=== PATIENT | female | born 1980 | race Caucasian/White ===

== ENCOUNTER 2019-03-01 07:33 | Emergency (ER) | payer MEDICAID ==
[~2019-03-01] VITALS: Ht 157.5 cm; Wt 77.0 kg
[~2019-03-01 07:33] MED LIST: NONE PER PT
[2019-03-01 07:38] VITALS: BP 136/86
--- NOTE | 2019-03-01 07:46 | NUR ---
FIRST CONTACT WITH PT. LANA. Per pt, "Yesterday I was doing squats and jumping to the floor while exercising. My back started hurting yesterday right after working out. My back hurts right in the middle (lower middle back) and it goes all the way to the front. It feels like it has been compressed. It's a 10. Dr. Britton at [facility] is my doctor." Pt denies cp, sob, n/v/d, trauma, numbness, loss of bowel or bladder.
[2019-03-01] MEDS ORDERED: KETOROLAC 30 MG/1 ML ONE (07:53)
[2019-03-01] MEDS ORDERED: DIAZEPAM 5 MG TABLET ONE (07:54)
[2019-03-01] MEDS ORDERED: KETOROLAC 30 MG/1 ML IM ONE (08:00)
[2019-03-01] MEDS ORDERED: DIAZEPAM 5 MG TABLET PO ONE (08:00)
--- NOTE | 2019-03-01 08:01 | NUR ---
Provided pt medication per EMAR. Pt appreciative.
== END 2019-03-01 08:56 | disposition home or self-care (01) ==
LOC: ED 08:04
DX: S39.012A Strain of muscle, fascia and tendon of lower back, initial encounter (principal); Z87.891 Personal history of nicotine dependence; X58.XXXA Exposure to other specified factors, initial encounter; Y93.89 Activity, other specified; Y92.89 Other specified places as the place of occurrence of the external cause; Y99.8 Other external cause status
CPT/HCPCS: 71045; 96372; 99283; J1885

== ENCOUNTER 2019-10-06 13:58 | Outpatient (CLI) | payer MEDICAID ==
[~2019-10-06 13:58] MED LIST changes: +HYDR-826 PO; +NAPR-685 PO
== END 2019-10-06 23:59 | disposition home or self-care (01) ==
LOC: CFH 13:58
PROVIDERS: ATTEND Internal Medicine Cardiovascular Disease
DX: R07.89 Other chest pain (principal); Z87.891 Personal history of nicotine dependence; Z82.5 Family history of asthma and other chronic lower respiratory diseases; Z82.49 Family history of ischemic heart disease and other diseases of the circulatory system; Z83.3 Family history of diabetes mellitus
CPT/HCPCS: 93306

== ENCOUNTER 2019-12-06 10:57 | Emergency (ER) | payer MEDICAID ==
[~2019-12-06] VITALS: Ht 157.5 cm; Wt 76.7 kg
[2019-12-06] MEDS ORDERED: DIAZEPAM 5 MG TABLET ONE (11:52)
[2019-12-06] MEDS ORDERED: KETOROLAC 30 MG/1 ML ONE (11:52)
[2019-12-06] MEDS ORDERED: DIAZEPAM 5 MG TABLET PO ONE (12:00)
[2019-12-06] MEDS ORDERED: KETOROLAC 30 MG/1 ML IM ONE (12:00)
--- NOTE | 2019-12-06 12:04 | NUR ---
PT MEDICATED PER EMAR, INSTRUCTED TO PROVIDE CLEAN CATCH UA. PT AMB TO BATHROOM AT THIS TIME WITH STEADY GAIT.
[2019-12-06 12:19] LABS: MICROSCOPIC NOT IND
[2019-12-06] MEDS ORDERED: OXYcodone/APAP 5/325MG TABLET PO ONE (12:30)
[2019-12-06] MEDS ORDERED: OXYcodone/APAP 5/325MG TABLET ONE (12:36)
--- NOTE | 2019-12-06 12:39 | NUR ---
pt reports pain unrelieved s/p meds, deborah reyez aware. percocet ordered and admin per emar, tolerated well. pt to be dc'd home pending adequate pain control.
[2019-12-06 13:22] VITALS: BP 115/71
--- NOTE | 2019-12-06 13:22 | NUR ---
pt reports pain level down from 10/10 to 5/10, states this is tolerable. pt educated not to drive today d/t meds given. pt a&o, resps even and unlabored, pt amb to dc desk with steady gait, accompanied by spouse who is to drive her home. pt given dc instructions and script, educated regarding dc rx for robaxan, medrol and naproxen. no complaint at discharge.
== END 2019-12-06 13:23 | disposition home or self-care (01) ==
LOC: ED 13:00
DX: S39.012A Strain of muscle, fascia and tendon of lower back, initial encounter (principal); E78.5 Hyperlipidemia, unspecified; J45.909 Unspecified asthma, uncomplicated; F17.200 Nicotine dependence, unspecified, uncomplicated; X58.XXXA Exposure to other specified factors, initial encounter; Y93.89 Activity, other specified; Y92.89 Other specified places as the place of occurrence of the external cause; Y99.8 Other external cause status
CPT/HCPCS: 72110; 81003; 96372; 99284; J1885

== ENCOUNTER 2020-04-20 15:19 | Outpatient (CLI) | payer MEDICAID | END 2020-04-20 23:59 | disposition home or self-care (01) | LOC: CFH 15:19 | PROVIDERS: ATTEND Nurse Practitioner | DX: M79.89 Other specified soft tissue disorders (principal) ==

== ENCOUNTER 2020-07-25 20:55 | Emergency (ER) | payer MEDICAID ==
[~2020-07-25] VITALS: Ht 157.5 cm; Wt 74.4 kg
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
--- NOTE | 2020-07-25 22:02 | NUR ---
REPORT FROM MARJORIE RODRÍGUEZ. PT RESTING WITH NO NEEDS AT THIS TIME,CALL LIGHT IN REACH
[2020-07-25 22:15] LABS: BASOPHILS # (AUTO) 0.07 x10^3/uL (0-0.1); BASOPHILS % (AUTO) 1 % (0-1); EOSINOPHILS % (AUTO) 2 % (1-7); LYMPHOCYTES # (AUTO) 4.45 x10^3/uL (1-3.4); LYMPHOCYTES % (AUTO) 35 % (22-44); MD NO; MEAN CORPUSCULAR HEMOGLOBIN 30.3 pg (27.0-34.8); MEAN CORPUSCULAR HGB CONC 33.4 g/dL (32.4-35.8); MEAN CORPUSCULAR VOLUME 90.6 fL (80-100); MEAN PLATELET VOLUME 9.2 fL (7.4-10.4); MONOCYTES # (AUTO) 0.86 x10^3/uL (0.2-0.8); MONOCYTES % (AUTO) 7 % (2-9); NEUTROPHILS # (AUTO) 7.28 x10^3/uL (1.8-6.8); NEUTROPHILS % (AUTO) 57 % (42-75); PLATELET COUNT 263 x10^3/uL (130-400); RED CELL DISTRIBUTION WIDTH 12.9 % (9.6-15.2)
[2020-07-25 22:24] LABS: ALANINE AMINOTRANSFERASE 86 U/L (12-78); ALBUMIN 3.5 g/dL (3.4-5.0); ANION GAP 7 mmol/L (5-15); CALCIUM 8.8 mg/dL (8.5-10.1); CHLORIDE 111 mmol/L (98-107); CREATININE 0.71 mg/dL (0.55-1.02)
[2020-07-25 22:28] LABS: ALKALINE PHOSPHATASE 82 U/L (45-117); BILIRUBIN,TOTAL 0.3 mg/dL (0.2-1.0); TOTAL PROTEIN 7.3 g/dL (6.4-8.2); TROPONIN I < 0.015 ng/mL (0.000-0.045)
[2020-07-25 23:30] VITALS: BP 129/73
== END 2020-07-26 00:09 | disposition home or self-care (01) ==
LOC: ED 22:04
DX: R07.2 Precordial pain (principal); R94.31 Abnormal electrocardiogram [ECG] [EKG]; E78.5 Hyperlipidemia, unspecified; J45.909 Unspecified asthma, uncomplicated; Z90.49 Acquired absence of other specified parts of digestive tract
CPT/HCPCS: 36415; 71046; 80053; 84484; 84703; 85025; 93005; 99285

== ENCOUNTER 2020-08-05 15:43 | Emergency (ER) | payer MEDICAID ==
[~2020-08-05] VITALS: Ht 157.5 cm; Wt 75.2 kg
--- NOTE | 2020-08-05 16:23 | NUR ---
TO ROOM FROM LOBBY AT THIS TIME.
--- NOTE | 2020-08-05 16:25 | NUR ---
PATIENT WALKED BACK FROM TRIAGE WITH CHIEF C/O UTERINE PAIN, PATIENT STATES SHE FEELS LIKE IT'S IN THE "OVARIES." PAIN STARTED ABOUT 1 WEEK AGO, AND PATIENT REPORTS HAVING DIFFICULTY STANDING AT TIMES, AND SOMETIMES HAS PAIN IN HER LOWER BACK. DENIES VAGINAL BLEEDING, PAINFUL URINATION OR ANY TRAUMA OR INJURY TO AREA. PATIENT ALSO STATES THAT FOR THE PAST 3 DAYS SOMETIMES SHE FEELS LIKE SHE IS ABOUT TO "PASS OUT BUT THEN I COME TO AGAIN." PATIENT A&O X4, NO ACUTE SIGNS OF DISTRESS, CONNECTED TO VITALS MACHINE, CALL LIGHT WITHIN REACH.
--- NOTE | 2020-08-05 16:37 | NUR ---
YURIDIA Galindo at bedside for evaluation.
--- NOTE | 2020-08-05 16:54 | NUR ---
URINE COLLECTED AND SENT TO LAB.
[2020-08-05 17:10] LABS: MICROSCOPIC NOT IND
[2020-08-05 17:21] LABS: BASOPHILS # (AUTO) 0.06 x10^3/uL (0-0.1); BASOPHILS % (AUTO) 1 % (0-1); EOSINOPHILS # (AUTO) 0.33 x10^3/uL (0-0.4); EOSINOPHILS % (AUTO) 3 % (1-7); LYMPHOCYTES # (AUTO) 3.84 x10^3/uL (1-3.4); LYMPHOCYTES % (AUTO) 32 % (22-44); MD NO; MEAN CORPUSCULAR HEMOGLOBIN 29.9 pg (27.0-34.8); MEAN CORPUSCULAR HGB CONC 32.8 g/dL (32.4-35.8); MEAN CORPUSCULAR VOLUME 91.2 fL (80-100); MEAN PLATELET VOLUME 8.6 fL (7.4-10.4); MONOCYTES # (AUTO) 0.72 x10^3/uL (0.2-0.8); MONOCYTES % (AUTO) 6 % (2-9); NEUTROPHILS % (AUTO) 59 % (42-75); PLATELET COUNT 268 x10^3/uL (130-400); RED BLOOD COUNT 4.48 x10^6/uL (3.82-5.3); RED CELL DISTRIBUTION WIDTH 13.4 % (9.6-15.2)
[2020-08-05 17:31] LABS: ALBUMIN 3.4 g/dL (3.4-5.0); ANION GAP 7 mmol/L (5-15); CALCIUM 8.8 mg/dL (8.5-10.1); CHLORIDE 110 mmol/L (98-107); CREATININE 0.84 mg/dL (0.55-1.02)
--- NOTE | 2020-08-05 17:37 | NUR ---
PATIENT IN ULTRASOUND.
[2020-08-05 17:51] VITALS: BP 131/72
--- NOTE | 2020-08-05 18:00 | NUR ---
PATIENT LAYING IN GURNEY, NO ACUTE SIGNS OF DISTRESS, CALL LIGHT WITHIN REACH, NO FURTHER NEEDS AT THIS TIME.
--- NOTE | 2020-08-05 18:21 | NUR ---
Discharge instructions reviewed.
== END 2020-08-05 18:29 | disposition home or self-care (01) ==
LOC: ED 16:45
DX: N83.291 Other ovarian cyst, right side (principal); R10.2 Pelvic and perineal pain; R10.9 Unspecified abdominal pain; J45.909 Unspecified asthma, uncomplicated; E78.5 Hyperlipidemia, unspecified; Z90.49 Acquired absence of other specified parts of digestive tract; Z87.891 Personal history of nicotine dependence
CPT/HCPCS: 36415; 76830; 80048; 81003; 82040; 84703; 85025; 99284

== ENCOUNTER 2020-08-29 16:32 | Emergency (ER) | payer MEDICAID ==
[~2020-08-29] VITALS: Ht 157.5 cm; Wt 77.0 kg
[2020-08-29 16:39] VITALS: BP 146/88
--- NOTE | 2020-08-29 17:21 | NUR ---
PT DC'D BY ANDERSON GROSS
== END 2020-08-29 17:23 | disposition home or self-care (01) ==
LOC: ED 16:49
DX: J02.0 Streptococcal pharyngitis (principal); H92.03 Otalgia, bilateral
CPT/HCPCS: 99283

== ENCOUNTER 2020-09-07 15:36 | Emergency (ER) | payer MEDICAID ==
[~2020-09-07] VITALS: Ht 157.5 cm; Wt 75.7 kg
[2020-09-07 15:39] VITALS: BP 147/94
--- NOTE | 2020-09-07 15:55 | NUR ---
C/O SORE THROAT SINCE 08/29, CURRENTLY ON ABX FOR STREP THROAT PT REPORTS NOT FEELING BETTER, TESTED FOR COVID ON SATURDAY, PENDING RESULTS. DENIES COUGH, CP OR SOB. PLACED ON VITALS MONITORS.
[2020-09-07] MEDS ORDERED: DEXAMETHASONE 4 MG TABLET PO ONE (16:30)
[2020-09-07] MEDS ORDERED: DEXAMETHASONE 4 MG TABLET ONE (16:32)
== END 2020-09-07 17:01 | disposition home or self-care (01) ==
LOC: ED 16:41
DX: J02.0 Streptococcal pharyngitis (principal); J45.909 Unspecified asthma, uncomplicated; E78.5 Hyperlipidemia, unspecified; Z90.49 Acquired absence of other specified parts of digestive tract
CPT/HCPCS: 99283

== ENCOUNTER 2020-10-01 08:26 | Emergency (ER) | payer MEDICAID ==
[~2020-10-01] VITALS: Ht 157.5 cm; Wt 75.2 kg
[2020-10-01 09:01] LABS: MICROSCOPIC INDICATED
--- NOTE | 2020-10-01 09:40 | NUR ---
PT C/O DIFFICULTY URINATING SINCE SATURDAY WITH ITCHING IN THE VAGINA THAT STARTED YESTERDAY. PT HAD A URINALYSIS DONE AT [facility] ON SATURDAY THAT WAS NEGATIVE.PT HAS A HX OF URINARY ISSUES THAT WERE TREATED WITH PROBIOTICS. PT DENIES DISCHARGE AT THIS TIME, HOWEVER SHE DOES HAVE AN ODOR TO HER URINE PER PT.
[2020-10-01 10:14] LABS: HCG UR SG 1.003 (1.003-1.030)
[2020-10-01 10:25] LABS: CLUE CELLS NONE SEEN (NONE SEEN); WET PREP WBCS FEW (FEW)
[2020-10-01 10:43] LABS: ALBUMIN 3.7 g/dL (3.4-5.0); ANION GAP 6 mmol/L (5-15); CALCIUM 9.1 mg/dL (8.5-10.1); CHLORIDE 112 mmol/L (98-107); CREATININE 0.63 mg/dL (0.55-1.02)
[2020-10-01] MEDS ORDERED: PHENAZOPYRIDINE 200 MG TABLET PO ONE (11:30)
[2020-10-01] MEDS ORDERED: PHENAZOPYRIDINE 200 MG TABLET ONE (11:48)
[2020-10-01] MEDS ORDERED: FLUCONAZOLE 100 MG TABLET ONE (11:49)
--- NOTE | 2020-10-01 11:53 | NUR ---
REPORT RECEIVED FROM MARCOS IVEY FOR TRANSFER OF PATIENT CARE.
[2020-10-01 11:57] VITALS: BP 125/77
[2020-10-01] MEDS ORDERED: FLUCONAZOLE 100 MG TABLET PO ONE (12:00)
== END 2020-10-01 11:59 | disposition home or self-care (01) ==
LOC: ED 08:52
DX: R30.0 Dysuria (principal); E11.65 Type 2 diabetes mellitus with hyperglycemia; J45.909 Unspecified asthma, uncomplicated; E78.5 Hyperlipidemia, unspecified
CPT/HCPCS: 36415; 80048; 81001; 81025; 82040; 83036; 87077; 87086; 87186; 87210; 87491; 87591; 87808; 99283; 99284

== ENCOUNTER 2021-06-21 22:32 | Emergency (ER) | payer MEDICAID ==
[~2021-06-21] VITALS: Ht 157.5 cm; Wt 73.9 kg
[2021-06-21 22:58] VITALS: BP 127/82
[2021-06-21 23:16] LABS: MICROSCOPIC NOT IND
--- NOTE | 2021-06-21 23:49 | NUR ---
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
[2021-06-22] MEDS ORDERED: BUSP5TAB2 PO (00:15)
[2021-06-22] MEDS ORDERED: MONT10TA6 PO (00:15)
[2021-06-22] MEDS ORDERED: METF500T17 PO (00:15)
[2021-06-22] MEDS ORDERED: BUPR150T73 PO (00:15)
--- NOTE | 2021-06-22 00:45 | NUR ---
Patient/Caregiver given discharge instructions and they have confirmed that they understand the instructions. Patient ambulatory with steady gait. NAD, all questions answered appropriately, denies additional needs at this time. No personal belongings left in room after discharge.
== END 2021-06-22 00:46 | disposition home or self-care (01) ==
LOC: ED 23:52
DX: R30.0 Dysuria (principal); I10 Essential (primary) hypertension; E11.9 Type 2 diabetes mellitus without complications; E78.5 Hyperlipidemia, unspecified; J45.909 Unspecified asthma, uncomplicated; Z90.49 Acquired absence of other specified parts of digestive tract; Z87.891 Personal history of nicotine dependence
CPT/HCPCS: 81003; 82962; 99283

== ENCOUNTER 2021-07-26 21:06 | Emergency (ER) | payer MEDICAID ==
[~2021-07-26] VITALS: Ht 157.5 cm; Wt 72.8 kg
[~2021-07-26 21:06] MED LIST changes: +BUPR150T73 PO; +BUSP5TAB2 PO; +METF500T17 PO; +MONT10TA6 PO
[2021-07-26 22:32] LABS: MICROSCOPIC NOT IND
[2021-07-26 23:17] LABS: BASOPHILS % (AUTO) 1 % (0-1); EOSINOPHILS % (AUTO) 3 % (1-7); LYMPHOCYTES % (AUTO) 40 % (22-44); MEAN CORPUSCULAR HEMOGLOBIN 30.8 pg (27.0-34.8); MEAN CORPUSCULAR HGB CONC 34.3 g/dL (32.4-35.8); MEAN PLATELET VOLUME 9.5 fL (7.4-10.4); MONOCYTES % (AUTO) 6 % (2-9); NEUTROPHILS % (AUTO) 52 % (42-75); PLATELET COUNT 286 x10^3/uL (130-400); RED BLOOD COUNT 4.87 x10^6/uL (3.82-5.3); RED CELL DISTRIBUTION WIDTH 13.4 % (9.6-15.2)
[2021-07-26 23:26] LABS: ALBUMIN 3.7 g/dL (3.4-5.0); ANION GAP 9 mmol/L (5-15); CALCIUM 9.3 mg/dL (8.5-10.1); CHLORIDE 105 mmol/L (98-107)
[2021-07-26 23:32] LABS: ALANINE AMINOTRANSFERASE 134 U/L (12-78); ALKALINE PHOSPHATASE 87 U/L (45-117); BILIRUBIN,TOTAL 0.5 mg/dL (0.2-1.0); CREATININE 0.86 mg/dL (0.55-1.02)
[2021-07-27] MEDS ORDERED: MORPHINE SULFATE 4 MG/ML, 1ML IVPush PRN (00:30)
[2021-07-27] MEDS ORDERED: SODIUM CHLORIDE FLUSH 10ML SYR IVF ONE (00:30)
[2021-07-27] MEDS ORDERED: SODIUM CHLORIDE 0.9% 1,000ML IVBOLUS ONE (00:30)
[2021-07-27] MEDS ORDERED: ONDANSETRON 2MG/ML, 2ML IVPush ONE (00:30)
[2021-07-27] MEDS ORDERED: OMNIPAQUE 350 MG/ML, 100ML BOTTLE ONE (00:48)
[2021-07-27 01:49] VITALS: BP 132/84
== END 2021-07-27 01:53 | disposition home or self-care (01) ==
LOC: ED 23:59
DX: R10.32 Left lower quadrant pain (principal); I10 Essential (primary) hypertension; E11.9 Type 2 diabetes mellitus without complications; E78.5 Hyperlipidemia, unspecified; J45.909 Unspecified asthma, uncomplicated; Z87.891 Personal history of nicotine dependence; Z90.49 Acquired absence of other specified parts of digestive tract
CPT/HCPCS: 36415; 74177; 76830; 80053; 81003; 84703; 85025; 96374; 96375; 99285; J2270; J2405; J7030; Q9967